=== PATIENT | female | born 1945 | race Caucasian/White ===

== ENCOUNTER 2019-12-19 16:40 | Emergency (ER) | payer MEDICARE ==
[~2019-12-19] VITALS: Ht 152.4 cm; Wt 57.7 kg
[2019-12-19 16:49] VITALS: Ht 152.4 cm; Wt 57.7 kg
[2019-12-19 17:23] LABS: BASOPHILS 0.3 % (0-2); EOSINOPHILS 1.5 % (0-7); HEMATOCRIT 39.3 % (36.0-48.0); IMMATURE GRANULOCYTES 0.1 % (0-5); LYMPHOCYTES 33.4 % (15-50); MCH 31.9 pg (26.0-34.0); MCHC 33.1 g/dL (31.0-37.0); MCV 96.6 fL (80.0-100.0); MEAN PLATELET VOLUME 9.6 fL (7.4-10.4); MONOCYTES 14.6 % (2-11); NEUTROPHILS 50.1 % (40-80); PLATELET COUNT 223 10x3/uL (130-400); RBC 4.07 10x6/uL (4.00-5.40); RDW 13.3 % (11.5-14.5); WBC 7.3 10x3/uL (4.8-10.8)
[2019-12-19 17:30] LABS: CALC OSMOLALITY 283 mosm/kg (275-300); CALCIUM 9.1 mg/dL (8.5-10.1); CARBON DIOXIDE 28.9 mmol/L (21.0-32.0); CHLORIDE - SERUM 103 mmol/L (98-107); CREATININE - SERUM 0.7 mg/dL (0.6-1.3); GLUCOSE 92 mg/dL (74-106); POTASSIUM - SERUM 3.7 mmol/L (3.5-5.1); SODIUM 142 mmol/L (136-145); UREA NITROGEN 16 mg/dL (7-18); eGFR NON AFRICAN AMERICAN 86 mL/min (90-120)
[2019-12-19 17:38] LABS: APTT 30.2 SECONDS (22.8-39.4); PROTIME 13.2 SECONDS (11.6-15.0)
[2019-12-19 17:47] LABS: ALBUMIN 3.7 g/dL (3.4-5.0); ALKALINE PHOSPHATASE 63 U/L (30-120); ALT (SGPT) 30 U/L (10-68); BILIRUBIN - TOTAL 0.36 mg/dL (0.2-1.3); CKMB 0.7 U/L (0.0-3.6); CREATINE KINASE 81 UL (21-215); MAGNESIUM - SERUM 1.9 mg/dL (1.8-2.4); PRO BNP 209 pg/mL (0-450); PROTEIN - SERUM 7.4 g/dL (6.4-8.2)
[2019-12-19 17:48] LABS: TROPONIN-I < 0.017 ng/mL (0.000-0.060)
[2019-12-19 19:24] VITALS: BP 167/93
== END 2019-12-19 19:24 | disposition home or self-care (01) ==
LOC: D.ER 16:40
PROVIDERS: Emergency Medicine
DX: I25.10 Atherosclerotic heart disease of native coronary artery without angina pectoris (principal); R07.9 Chest pain, unspecified